=== PATIENT | male | born 2005 | race Caucasian/White ===

== ENCOUNTER 2024-06-25 05:08 | Inpatient (IN) | payer BC ==
[2024-06-25] MEDS ORDERED: Albuterol 2.5 MG (3 mL) NEB ONE (05:16)
[2024-06-25] MEDS ORDERED: Magnesium 2 GM/50 ML BAG (IN WATER) ONE (05:23)
[2024-06-25 05:35] LABS: Actual Bicarbonate (HCO3v) 21.2 mEq/L (22-28); Analyzer IN Cardio ER; Base Excess -4.8 mEq/L (-2.0 to +3.0); Calcium, Ionized (venous) 1.12 mmol/L (1.16-1.32); Chloride (VBG) 105 mmol/L (98-106); Hematocrit-VBG 42 % (42.0-52.0); Hemoglobin (Hb) 14.2 g/dL (13.2-17.3); Potassium (VBG) 3.48 mmol/L (3.70-5.30); Sodium 141 mmol/L (133-146); pH (venous) 7.315 (7.32-7.43)
[2024-06-25 06:09] LABS: #Basophils 0.06 10x3/uL (0.0-0.2); %Basophils 0.5 % (0.0-1.0); %Eosinophils 7.5 % (0.0-10.0); %Lymphocytes 22.1 % (28.0-48.0); %Neutrophils 64.6 % (31.0-61.0); Hematocrit 40.5 % (42.0-52.0); Hemoglobin 13.2 g/dL (14.0-18.0); Mean Corpuscular HGB CONC 32.6 g/dL (32.0-36.0); Mean Corpuscular Hemoglobin 27.2 pg (25.0-35.0); Mean Corpuscular Volume 83.3 fL (78.0-98.0); Mean Platelet Volume 9.1 fL (7.4-10.4); Platelet Count 328 10x3/uL (130-400); Red Blood Cell (RBC) Count 4.86 mill/uL (4.00-5.20)
[2024-06-25 06:16] LABS: ALT (SGPT) 12 U/L (8-55); AST (SGOT) 13 U/L (5-34); Albumin 3.4 g/dL (3.5-5.0); Alkaline Phosphatase 54 U/L (50-130); Anion Gap 13 mmol/L (10-20); BUN (Urea Nitrogen) 11 mg/dL (8.9-20.6); Bilirubin, Total 0.3 mg/dL (0.2-1.2); Calc. Creatinine Clearance 0 mL/min (70-130); Carbon Dioxide 21 mmol/L (22-29); Chloride 109 mmol/L (98-107); Estimated GFR 128; Globulin 3.2 g/dL (2.4-3.5); Glucose 126 mg/dL (70-105); Potassium 3.4 mmol/L (3.5-5.1); Protein, Total 6.6 g/dL (6.0-8.3); Sodium 140 mmol/L (136-145)
[2024-06-25] MEDS ORDERED: Ipratropium/Albuterol 3 ML NEB NEB PRN (08:24)
[2024-06-25] MEDS: Montelukast Sodium 10 mg Tablet PO SCH (09:37)
[2024-06-25] MEDS ORDERED: Ipratropium/Albuterol 3 ML NEB ONE ×2 (11:33→14:14)
[2024-06-25] MEDS: Ipratropium/Albuterol 3 ML NEB NEB SCH (11:37)
[2024-06-25] MEDS ORDERED: methylPREDNISolone Sod Succ 40 MG VIAL ONE ×2 (12:48→18:05)
[2024-06-25] MEDS: methylPREDNISolone Sod Succ 40 MG VIAL IVP SCH (12:53)
[2024-06-25 18:48] VITALS: BMI 56.0
[2024-06-25] MEDS: Mometasone 200 MCG/Formoterol 5 MCG 120 PUFF INHALER INH SCH (20:13)
[2024-06-26] MEDS ORDERED: traMADol HCl 50 MG TAB PO PRN (09:01)
[2024-06-26] MEDS ORDERED: Bisacodyl 5 MG TAB PO PRN (09:01)
[2024-06-26] MEDS ORDERED: Ondansetron PF 4 MG/2 ML Vial IVP PRN (09:01)
[2024-06-26] MEDS: Enoxaparin 40 MG (0.4 mL) SYRINGE SC SCH (11:29)
[2024-06-26] MEDS: traMADol HCl 50 MG TAB PO PRN (18:12)
[2024-06-27 04:44] LABS: #Basophils 0.03 10x3/uL (0.0-0.2); #Eosinophils Less than 0.03 10x3/uL (0.0-0.7); %Basophils 0.1 % (0.0-1.0); %Lymphocytes 7.2 % (28.0-48.0); %Monocytes 3.1 % (0.0-4.0); %Neutrophils 88.7 % (31.0-61.0); Hematocrit 41.5 % (42.0-52.0); Hemoglobin 13.4 g/dL (14.0-18.0); Mean Corpuscular HGB CONC 32.3 g/dL (32.0-36.0); Mean Corpuscular Hemoglobin 26.9 pg (25.0-35.0); Mean Corpuscular Volume 83.2 fL (78.0-98.0); Mean Platelet Volume 9.1 fL (7.4-10.4); Platelet Count 397 10x3/uL (130-400); RBC Distribution Width 13.9 % (11.5-14.5); Red Blood Cell (RBC) Count 4.99 mill/uL (4.00-5.20)
[2024-06-27 05:06] LABS: Anion Gap 14 mmol/L (10-20); BUN (Urea Nitrogen) 14 mg/dL (8.9-20.6); Calc. Creatinine Clearance 376 mL/min (70-130); Calcium 8.8 mg/dL (7.8-10.44); Carbon Dioxide 20 mmol/L (22-29); Chloride 107 mmol/L (98-107); Estimated GFR 134; Glucose 138 mg/dL (70-105); Potassium 4.1 mmol/L (3.5-5.1); Sodium 137 mmol/L (136-145)
[2024-06-27] MEDS: Acetaminophen 325 MG TAB PO PRN (08:56)
[2024-06-27] MEDS: dilTIAZem CD 120 MG CAP PO SCH (08:57)
[2024-06-27 15:14] VITALS: TEMP 97.8
[2024-06-27 19:39] VITALS: BP 137/80
== END 2024-06-27 20:10 | disposition home or self-care (01) | DRG 202 ==
LOC: ERS 05:08 → ERHOLD 08:11 → 2NO 18:29
PROVIDERS: ADMIT Internal Medicine; ATTEND Internal Medicine
DX: J45.901 Unspecified asthma with (acute) exacerbation (principal); J96.01 Acute respiratory failure with hypoxia; I47.10 Supraventricular tachycardia, unspecified; E87.6 Hypokalemia; E66.01 Morbid (severe) obesity due to excess calories; G47.33 Obstructive sleep apnea (adult) (pediatric); Z79.51 Long term (current) use of inhaled steroids; Z79.899 Other long term (current) drug therapy
CPT/HCPCS: 36415; 71045; 80048; 80053; 82805; 85025; 87428; 93005; 94640; 94660; J1650; J2919; J3475; J7611; J7620